=== PATIENT | female | born 1985 | race Caucasian/White ===

== ENCOUNTER → 2017-09-23 | Outpatient (CLI) | payer OTHER ==
[~2017-09-23] MED LIST: SINCALIDE (KINEVAC) 5 MCG ONE
== END | disposition home or self-care (01) ==
LOC: PETCFH 12:22
PROVIDERS: ATTEND Family Medicine
DX: R10.11 Right upper quadrant pain (principal)
CPT/HCPCS: 78227; A9537; J2805

== ENCOUNTER → 2017-09-23 | Outpatient (CLI) | payer OTHER ==
[2017-09-23 11:55] LABS: BASOPHILS # (AUTO) 0.04 x10^3/uL (0-0.1); BASOPHILS % (AUTO) 1 % (0-1); EOSINOPHILS # (AUTO) 0.16 x10^3/uL (0-0.4); EOSINOPHILS % (AUTO) 3 % (1-7); LYMPHOCYTES # (AUTO) 1.93 x10^3/uL (1-3.4); LYMPHOCYTES % (AUTO) 36 % (22-44); MD NO; MEAN CORPUSCULAR HEMOGLOBIN 30.4 pg (27.0-34.8); MEAN CORPUSCULAR HGB CONC 33.9 g/dL (32.4-35.8); MEAN CORPUSCULAR VOLUME 89.7 fL (80-100); MEAN PLATELET VOLUME 8.2 fL (7.4-10.4); MONOCYTES # (AUTO) 0.35 x10^3/uL (0.2-0.8); MONOCYTES % (AUTO) 7 % (2-9); NEUTROPHILS # (AUTO) 2.89 x10^3/uL (1.8-6.8); NEUTROPHILS % (AUTO) 54 % (42-75); PLATELET COUNT 258 x10^3/uL (130-400); RED BLOOD COUNT 4.74 x10^6/uL (3.82-5.3); RED CELL DISTRIBUTION WIDTH 12.6 % (9.6-15.2)
[2017-09-23 12:04] LABS: ALBUMIN 4.1 g/dL (3.4-5.0); ANION GAP 6 mmol/L (5-15); CALCIUM 8.4 mg/dL (8.5-10.1); CHLORIDE 107 mmol/L (98-107)
[2017-09-23 12:17] LABS: ALANINE AMINOTRANSFERASE 24 U/L (12-78); ALKALINE PHOSPHATASE 64 U/L (45-117); BILIRUBIN,TOTAL 0.9 mg/dL (0.2-1.0); CHOL/HDL RATIO 3.7; CHOLESTEROL, TOTAL 249 mg/dL (140-239); CREATININE 0.75 mg/dL (0.55-1.02); HDL CHOL % 27 % (28-40); HDL CHOLESTEROL (DIRECT) 67 mg/dL (40-60); LDL CHOLESTEROL,CALCULATED 151 mg/dL (54-169); LDL/HDL RATIO 2.3 (0.5-3.0); THYROID STIMULATING HORMONE 0.921 mIU/L (0.358-3.740); TOTAL PROTEIN 7.8 g/dL (6.4-8.2); TRIGLYCERIDES 157 mg/dL (50-200); VLDL CHOLESTEROL 31 mg/dL (0-25)
== END | disposition home or self-care (01) ==
LOC: LAB 11:39
PROVIDERS: ATTEND Family Medicine
DX: Z00.01 Encounter for general adult medical examination with abnormal findings (principal); R10.11 Right upper quadrant pain
CPT/HCPCS: 36415; 80053; 80061; 82306; 84443; 85025

== ENCOUNTER 2017-11-26 12:22 | Day surgery (SDC) | payer OTHER ==
[~2017-11-26] VITALS: Ht 165.1 cm; Wt 75.4 kg
[~2017-11-26 12:22] MED LIST changes: +CHOL2000 PO; +NORE1PAT7 TD; -SINCALIDE (KINEVAC) 5 MCG ONE
[2017-11-26 12:55] VITALS: BP 131/87
[2017-11-26] MEDS ORDERED: LACTATED RINGERS 1,000 ML IV SCH (12:58)
[2017-11-26] MEDS ORDERED: BUPIVACAINE/PF 0.5% ONE (12:59)
[2017-11-26] MEDS ORDERED: EPINEPHRINE 1 MG/ML, 1ML ONE (12:59)
[2017-11-26] MEDS ORDERED: SILVER NITRATE STICK TP ONE (13:05)
[2017-11-26] MEDS ORDERED: LIDOCAINE/PF 1%-EPI 1:200K, 30 ML ONE (13:05)
[2017-11-26] MEDS ORDERED: MIDAZOLAM 1 MG/ML, 2ML ONE (13:14)
[2017-11-26] MEDS ORDERED: FENTANYL PF 250 MCG/5ML ONE (13:14)
[2017-11-26] MEDS ORDERED: LIDOCAINE-MPF 2% ,5ML ONE (13:15)
[2017-11-26] MEDS ORDERED: PROPOFOL 10 MG/ML, 20ML ONE (13:15)
[2017-11-26] MEDS ORDERED: ROCURONIUM 10MG/ML,5ML ONE (13:17)
[2017-11-26 13:18] LABS: HCG UR SG 1.013 (1.003-1.030)
[2017-11-26] MEDS ORDERED: APREPITANT 40 MG CAPSULE ONE (13:22)
[2017-11-26] MEDS ORDERED: ACETAMINOPHEN 500 MG TABLET ONE (13:23)
[2017-11-26] MEDS ORDERED: GABAPENTIN 300 MG CAPSULE ONE (13:23)
[2017-11-26] MEDS ORDERED: DEXAMETHASONE 4 MG/ML, 5ML ONE (13:28)
[2017-11-26] MEDS ORDERED: ONDANSETRON 2MG/ML, 2ML ONE (13:28)
[2017-11-26] MEDS ORDERED: CEFOTETAN 2 GM ONE (13:28)
[2017-11-26] MEDS ORDERED: BUPIVACAINE/PF-EPI 0.5% 1:200K IM ONE (13:47)
[2017-11-26] MEDS ORDERED: FENTANYL PF 100 MCG/2ML ONE (14:56)
[2017-11-26] MEDS ORDERED: HALOPERIDOL 5 MG/ML IV PRN (15:00)
[2017-11-26] MEDS ORDERED: HYDROmorphone 1 MG/ML, 1ML IV PRN (15:00)
[2017-11-26] MEDS ORDERED: PROMETHAZINE 25 MG/ML, 1ML IV PRN (15:00)
[2017-11-26] MEDS ORDERED: FENTANYL PF 100 MCG/2ML IV PRN (15:00)
[2017-11-26] MEDS ORDERED: OXYcodone 5 MG/5 ML ORAL.SOL UDC PO PRN (15:00)
[2017-11-26] MEDS ORDERED: MEPERIDINE/PF 50 MG/ML ONE (15:12)
[2017-11-26] MEDS: MEPERIDINE/PF 25MG/0.5ML IVPush PRN ×2 (15:15→15:30)
[2017-11-26] MEDS ORDERED: PROMETHAZINE 25 MG/ML, 1ML ONE (15:19)
== END 2017-11-26 17:30 | disposition home or self-care (01) ==
LOC: OUT 12:22
PROVIDERS: ATTEND Surgery
DX: K82.8 Other specified diseases of gallbladder (principal); N84.0 Polyp of corpus uteri; Z98.890 Other specified postprocedural states; Z79.899 Other long term (current) drug therapy; Z72.89 Other problems related to lifestyle
CPT/HCPCS: 47562; 58558; 81025; 88304; 88305; J0171; J1100; J2175; J2250; J2405; J2550; J2704; J3010; J3490; J7120; J8501; S0074

== ENCOUNTER 2017-12-16 12:28 | Emergency (ER) | payer OTHER ==
[~2017-12-16] VITALS: Ht 167.6 cm; Wt 75.0 kg
[2017-12-16] MEDS ORDERED: ONDANSETRON ODT 4 MG ONE (13:52)
[2017-12-16] MEDS ORDERED: MORPHINE SULFATE 4 MG/ML, 1ML ONE ×2 (13:52→16:18)
[2017-12-16 13:53] LABS: BASOPHILS # (AUTO) 0.02 x10^3/uL (0-0.1); BASOPHILS % (AUTO) 0 % (0-1); EOSINOPHILS # (AUTO) 0.02 x10^3/uL (0-0.4); EOSINOPHILS % (AUTO) 0 % (1-7); LYMPHOCYTES # (AUTO) 0.46 x10^3/uL (1-3.4); LYMPHOCYTES % (AUTO) 5 % (22-44); MD NO; MEAN CORPUSCULAR HEMOGLOBIN 31.1 pg (27.0-34.8); MEAN CORPUSCULAR HGB CONC 34.9 g/dL (32.4-35.8); MEAN CORPUSCULAR VOLUME 88.9 fL (80-100); MEAN PLATELET VOLUME 7.8 fL (7.4-10.4); MONOCYTES # (AUTO) 0.11 x10^3/uL (0.2-0.8); MONOCYTES % (AUTO) 1 % (2-9); NEUTROPHILS # (AUTO) 9.42 x10^3/uL (1.8-6.8); NEUTROPHILS % (AUTO) 94 % (42-75); PLATELET COUNT 247 x10^3/uL (130-400); RED BLOOD COUNT 4.95 x10^6/uL (3.82-5.3); RED CELL DISTRIBUTION WIDTH 11.8 % (9.6-15.2)
[2017-12-16 14:00] LABS: CHLORIDE 107 mmol/L (98-107)
[2017-12-16] MEDS ORDERED: SODIUM CHLORIDE FLUSH 10ML SYR IVF ONE (14:00)
[2017-12-16] MEDS ORDERED: SODIUM CHLORIDE 0.9% 1,000ML IVBOLUS ONE ×2 (14:00→14:30)
[2017-12-16] MEDS ORDERED: ONDANSETRON ODT 4 MG PO ONE (14:00)
[2017-12-16] MEDS: MORPHINE SULFATE 4 MG/ML, 1ML IVPush PRN (14:00)
[2017-12-16 14:13] LABS: ALANINE AMINOTRANSFERASE 45 U/L (12-78); ALBUMIN 4.3 g/dL (3.4-5.0); ALKALINE PHOSPHATASE 91 U/L (45-117); ANION GAP 10 mmol/L (5-15); CALCIUM 8.8 mg/dL (8.5-10.1); CREATININE 0.82 mg/dL (0.55-1.02); TOTAL PROTEIN 8.3 g/dL (6.4-8.2)
[2017-12-16 14:15] LABS: MICROSCOPIC AUTO
[2017-12-16 14:16] LABS: CULTURE INDICATED? YES
[2017-12-16] MEDS ORDERED: OMNIPAQUE 350 MG/ML, 100ML BOTTLE ONE (15:52)
[2017-12-16] MEDS ORDERED: METOCLOPRAMIDE 5 MG/ML, 2ML ONE (16:18)
[2017-12-16] MEDS ORDERED: METOCLOPRAMIDE 5 MG/ML, 2ML IVPush ONE (16:30)
[2017-12-16 16:48] VITALS: BP 122/61
== END 2017-12-16 16:50 | disposition home or self-care (01) ==
LOC: ED 16:05
DX: A08.39 Other viral enteritis (principal); Z90.49 Acquired absence of other specified parts of digestive tract; Z90.89 Acquired absence of other organs
CPT/HCPCS: 36415; 74177; 76700; 80053; 81001; 83690; 84703; 85025; 87086; 96361; 96374; 96375; 99285; J2765; J7030; Q0162; Q9967